=== PATIENT | female | born 1985 | race African-American/Black ===

== ENCOUNTER 2016-08-28 12:59 | Emergency (ER) | payer BC ==
[~2016-08-28] VITALS: Ht 154.9 cm; Wt 65.8 kg
[~2016-08-28 12:59] MED LIST: ALLEGRA ALLERG180 MG PO; AZITHROMYCIN 2250 MG PO; CIPROFLOXACIN500 M1 PO; COMFORT PAC-CYC10 MG MC; FLEXERIL PO; IBUPROFEN 200200 M1; IBUPROFEN 200200 M1 PO; IBUPROFEN 600600 M1 PO; LISINOPRIL10 MG PO; MACROBID 100 M100 M1 PO; MOBIC15 MG PO; NAPROSYN500 MG PO; NOHOMEMEDICATIONS; NORCO 5-325 TA1 EACH PO; ONDANSETRON HCL4 M2 PO; PREDNISONE 20 M20 MG PO; PRENATAL; PRENATAL COMPL1 EACH PO; PRENATAL TABLE1 EAC3 PO; PROVENTIL HFA6.7 G1 INH; ZOFRAN ODT4 MG PO
[2016-08-28 13:31] LABS: ABSOLUTE NEUTROPHILS 2.9 thou/uL (1.4-8.2); BASOPHILS 0.8 % (0.0-2.0); EOSINOPHILS 2.1 % (0.0-3.0); HEMATOCRIT 37.4 % (37.0-47.0); HEMOGLOBIN 12.3 gm/dL (12.0-15.0); LYMPHOCYTES 33.2 % (24.0-44.0); MANUAL DIFF NO; MCH 27.9 pg (26.0-34.0); MCV 84.4 fL (80.0-100.0); MONOCYTES 7.8 % (1.0-8.0); PLATELET COUNT 189 thou/uL (150-400); POLYS 56.1 % (36.0-66.0); RBC 4.43 mil/uL (4.20-5.00); RDW 13.8 % (10.5-14.5); WBC 5.1 thou/uL (4.0-11.0)
[2016-08-28 13:31] LABS: URINE BILIRUBIN NEGATIVE (Negative); URINE BLOOD 2+ (Negative); URINE COLOR YELLOW; URINE GLUCOSE-RANDOM* NEGATIVE (Negative); URINE KETONES NEGATIVE (Negative); URINE NITRITE NEGATIVE (Negative); URINE PROTEIN (DIPSTICK) NEGATIVE (Negative); URINE SPECIFIC GRAVITY 1.025 (1.003-1.035); URINE UROBILINOGEN 0.2 E.U./dl (0.2-1.0)
[2016-08-28 13:34] LABS: CALCIUM 8.4 mg/dL (8.5-10.1); CREATININE 0.7 mg/dL (0.6-1.3); POTASSIUM 3.4 mmol/L (3.5-5.1)
[2016-08-28 13:45] LABS: SQUAMOUS >10 Many /LPF (0-3)
[2016-08-28 13:46] LABS: BACTERIA >30 Many /HPF (None Seen); CASTS None Seen /LPF (None Seen); CRYSTALS None Seen /LPF (None Seen); URINE RBC 0-2 Rare /HPF (0-2); URINE WBC 6-15 Few /HPF (0-5)
[2016-08-28] MEDS ORDERED: NAPROSYN500 MG PO (14:51)
[2016-08-28] MEDS ORDERED: NORFLEX100 MG PO (14:51)
== END 2016-08-28 15:33 | disposition home or self-care (01) ==
LOC: ER 12:59
PROVIDERS: Physician Assistant
DX: S00.93XA Contusion of unspecified part of head, initial encounter (principal); F07.81 Postconcussional syndrome; G44.209 Tension-type headache, unspecified, not intractable; I10 Essential (primary) hypertension; F10.99 Alcohol use, unspecified with unspecified alcohol-induced disorder; W18.09XA Striking against other object with subsequent fall, initial encounter; Y93.9 Activity, unspecified; Y92.192 Bathroom in other specified residential institution as the place of occurrence of the external cause; Y99.9 Unspecified external cause status